=== PATIENT | male | born 1985 | race Caucasian/White ===

== ENCOUNTER 2024-06-02 09:50 | Emergency (ER) | payer OTHER ==
[2024-06-02 10:07] VITALS: BP 122/79; O2SAT 100
--- NOTE | 2024-06-02 10:09 | ED Physician Documentation ---
PD HPI URI - Stated complaint Stated Complaint: SORE THROAT,GEN WEAKNESS - Chief complaint Chief Complaint: Heent - History obtained from History obtained from: Patient - History of Present Illness Timing - onset: How many days ago (2) Timing duration: Days (2) Timing details: Abrupt onset, Still present Associated symptoms: Fever, Chills, Sore throat, Swollen nodes, Dry cough. No: Rhinorrhea, Productive cough, NVD Contributing factors: No: Sick contact Review of Systems Constitutional: reports: Fever, Chills, Myalgias Nose: denies: Rhinorrhea / runny nose Throat: reports: Sore throat, Swollen tonsils PD PAST MEDICAL HISTORY - Past Medical History Past Medical History: No Cardiovascular: None Respiratory: None Endocrine/Autoimmune: None GI: None : None HEENT: None Psych: None Musculoskeletal: None Derm: None - Past Surgical History Past Surgical History: Yes HEENT: Other - Present Medications Home Medications: Ambulatory Orders Medication Instructions Recorded Confirmed Amoxicillin 500 mg PO TID #21 cap 06/02/24 dexAMETHasone [Decadron] 4 mg PO DAILY #5 tablet 06/02/24 - Allergies Allergies/Adverse Reactions: Allergies Allergy/AdvReac Type Severity Reaction Status Date / Time No Known Drug Allergies Allergy Verified 06/02/24 09:58 - Social History Does the pt smoke?: No Smoking Status: Never smoker Does the pt drink ETOH?: No Does the pt have substance abuse?: No - Immunizations Immunizations are current?: Yes - POLST Patient has POLST: No PD ED PE NORMAL - Vitals Vital signs reviewed: Yes - General General: Alert and oriented X 3, Well developed/nourished - HEENT HEENT: Ears normal, Moist mucous membranes. No: Pharynx benign (redness with exudate. No peritonsillar edema. ) - Neck Neck: Supple, no meningeal sign, Other (anterior adenopathy right more than left, tender. ) - Cardiac Cardiac: RRR, No murmur - Respiratory Respiratory: Clear bilaterally Results - Vitals Vitals: Vital Signs - 24 hr 06/02/24 09:58 Temperature 36.7 C Heart Rate 83 Respiratory 16 Rate Blood Pressure 122/79 O2 Saturation 100 Oxygen O2 Source Room air - Labs Labs: Laboratory Tests 06/02/24 10:05 Group A Strep Rapid Negative PD Medical Decision Making - ED course Complexity details: reviewed results, considered differential (has 4/4 Centor so even though rapid strep negative, I would initiate treatment pending culture. ), d/w patient Departure - Departure Disposition: 01 Home, Self Care Clinical Impression: Pharyngitis Condition: Stable Record reviewed to determine appropriate education?: Yes Instructions: ED Strep Pharyngitis Poss Follow-Up: RINKU Goldberg [Provider Group] Prescriptions: Amoxicillin 500 mg PO TID #21 cap dexAMETHasone [Decadron] 4 mg PO DAILY #5 tablet Comments: Your rapid strep test is negative. Clinically however this looks suspicious enough like strep to treat it that way pending the throat culture. There should result in a couple of days and be more definitive on bacterial or not. I wrote prescription for amoxicillin and a anti-inflammatory to your preferred pharmacy. The throat culture should result in a couple of days and if it is positive for bacterial source then continue with the antibiotics. If it is negative then presume it was viral after all and you could discontinue the antibiotics. We typically call for positive culture results but you can look up there is out ei ther way on the patient portal in a couple of days. The anti-inflammatory should help regardless. Stay well-hydrated otherwise and use Tylenol every 4-6 hours if needed for pains or fevers etc. Activity as tolerated. Forms: PCP List Discharge Date/Time: 06/02/24 11:16
[2024-06-02 10:17] LABS: RAPID STREP SCREEN Negative (Negative)
[2024-06-02] MEDS: ACETAMINOPHEN 500 MG TABLET PO STA (10:35)
[2024-06-02] MEDS: dexAMETHasone 4 MG TABLET PO STA (10:35)
[2024-06-02] MEDS: AMOXICILLIN 250 MG CAPSULE PO STA (10:35)
== END 2024-06-02 11:16 | disposition home or self-care (01) ==
LOC: ED 09:50
DX: J02.9 Acute pharyngitis, unspecified (principal)
CPT/HCPCS: 87070; 87430; 99283; A9270; J8540